=== PATIENT | female | born 1985 | race Caucasian/White ===

== ENCOUNTER 2020-11-11 19:14 | Inpatient (IN) | payer OTHER ==
[2020-11-11] VITALS (8 sets, daily range): BP systolic 144–189; BP diastolic 66–98
[~2020-11-11] VITALS: Ht 160 cm; Wt 78.5 kg
--- NOTE | 2020-11-11 19:38 | NUR ---
PT SIGNED OUT AMA FROM [facility] 11/03/20. IS DIABETIC BRITTLE, JUVENILE ONSET. END STAGE KIDNEY DISEASE, DIALYSIS 3 TIMES WEEKLY HAS HAD NO DIALYSIS. ON MEDICATIONS, INCLUDING INSULIN SINCE DISCHARGE ON 11/03. HAS EPILEPSY NO CODE STATUS PER [place]. PT IS NOT A [place] OF THE STATE, MAKES HER OWN DECISIONS
[2020-11-11 19:42] LABS: BE(vivo) -7.8 mmol/L (-2 to +3); HCO3 19.7 mmol/L (22.0-26.0); PCO2 48.2 mmHg (35.0-45.0); sO2 73.5 % (92.0-98.0)
[2020-11-11 19:43] LABS: PO2 45.9 mmHg (80.0-100.0); pH 7.229 (7.360-7.450)
[2020-11-11 19:47] LABS: BASOPHILS 0.6 % (0.0-2.0); EOSINOPHILS 0.4 % (0.0-3.0); HEMATOCRIT 34.7 % (37.0-47.0); HEMOGLOBIN 11.2 gm/dL (12.0-15.0); LYMPHOCYTES 9.9 % (24.0-44.0); MCH 31.3 pg (26.0-34.0); MCHC 32.3 g/dL (28.0-37.0); MCV 96.9 fL (80.0-100.0); MONOCYTES 4.8 % (1.0-8.0); PLATELET COUNT 183 thou/uL (150-400); POLYS 84.3 % (36.0-66.0); RBC 3.58 mil/uL (4.20-5.00); WBC 7.1 thou/uL (4.0-11.0)
[2020-11-11 20:00] LABS: ALBUMIN 3.5 g/dL (3.4-5.0); CALCIUM 8.4 mg/dL (8.5-10.1); CREATININE 11.8 mg/dL (0.6-1.0); MAGNESIUM 2.4 mg/dL (1.8-2.4); TOTAL BILIRUBIN 1.9 mg/dL (0.2-1.0); TOTAL PROTEIN 7.6 g/dL (6.4-8.2)
[2020-11-11] MEDS ORDERED: ASA81BEC PO ×2 (20:03)
[2020-11-11] MEDS ORDERED: CELEXA 20 MG TA20 MG PO (20:04)
[2020-11-11] MEDS ORDERED: SLOW FE142 MG PO (20:05)
[2020-11-11 20:06] LABS: POTASSIUM 6.4 mmol/L (3.5-5.1)
[2020-11-11] MEDS ORDERED: GABAPENTIN600 M1 PO (20:06)
[2020-11-11] MEDS ORDERED: LANTUS100 UNIT/M SUBQ (20:07)
[2020-11-11] MEDS ORDERED: LASIX 40 MG TAB40 MG PO (20:08)
[2020-11-11] MEDS ORDERED: NOVOLOG100 UNIT/1 SUBQ (20:09)
[2020-11-11] MEDS ORDERED: LOPRESSOR50 MG PO (20:09)
[2020-11-11] MEDS ORDERED: LEVOTHYROXINE25 MC1 PO (20:09)
[2020-11-11] MEDS ORDERED: PROCARDIA XL60 MG PO (20:10)
[2020-11-11] MEDS ORDERED: RENVELA800 MG PO (20:11)
[2020-11-11] MEDS ORDERED: ACETAMINOPHEN PO (20:12)
[2020-11-11 21:46] LABS: PCO2 34.5 mmHg (35.0-45.0); PO2 106.9 mmHg (80.0-100.0); pH 7.335 (7.360-7.450); sO2 97.6 % (92.0-98.0)
--- NOTE | 2020-11-11 22:35 | NUR ---
INFORMATION SENT FROM AL SENT TO ICU
[2020-11-11 22:47] LABS: CALCIUM 8.2 mg/dL (8.5-10.1); CREATININE 11.6 mg/dL (0.6-1.0); POTASSIUM 5.6 mmol/L (3.5-5.1)
[2020-11-12] VITALS (52 sets, daily range): BP systolic 134–198; BP diastolic 61–105
--- NOTE | 2020-11-12 01:06 | NUR ---
2229 PT ARRIVED FROM ER VIA CART. PT IS INTUBATED AND SEDATED WITH PROPOFOL GTT. PT IS MOVED FROM CART TO ICU BED AND ASSESSED PER ICU PROTOCOL. PT IS MOVING ALL EXTREMITIES AND RESTRAINED TO PREVENT SELF EXTUBATION. DR. RANDALL CALLED FOR NEPHROLOGY CONSULT AND ORDERED EMERGENT DIALYSIS. DR. LOMBARDI CALLED FOR PULMONOLOGY CONSULT, VENT SETTINGS AND ABGS WERE REPORTED, NO NEW ORDERS RECEIVED. SCRAPE GATHERER KENISHA AT BEDSIDE. EX /DPOA ([place]) CALLED AND GIVEN AN UPDATE ON PTS CONDITION WELL PTS SECUIRTY CODE AND UNIT PHONE NUMBER. CODE STATUS WAS ALSO CLARIFIED BY DPOA AND HE STATES SHE IS A FULL CODE. 9 DIALYSIS NURSE IS AT BEDSIDE AND STARTING HEMODIALYSIS.
[2020-11-12 04:51] LABS: HEMATOCRIT 26.7 % (37.0-47.0); HEMOGLOBIN 9.4 gm/dL (12.0-15.0); MCH 32.2 pg (26.0-34.0); MCHC 35.1 g/dL (28.0-37.0); RBC 2.91 mil/uL (4.20-5.00); RDW 15.6 % (10.5-14.5); WBC 6.6 thou/uL (4.0-11.0)
[2020-11-12 04:52] LABS: MCV 91.7 fL (80.0-100.0)
[2020-11-12 05:06] LABS: CALCIUM 8.8 mg/dL (8.5-10.1)
[2020-11-12 05:08] LABS: CREATININE 5.9 mg/dL (0.6-1.0); POTASSIUM 3.3 mmol/L (3.5-5.1)
[2020-11-12 05:14] LABS: BE(vivo) 3.7 mmol/L (-2 to +3); HCO3 26.2 mmol/L (22.0-26.0); PCO2 32.2 mmHg (35.0-45.0); PO2 66.5 mmHg (80.0-100.0); pH 7.528 (7.360-7.450); sO2 95.2 % (92.0-98.0)
[2020-11-12 12:51] LABS: HCO3 21.6 mmol/L (22.0-26.0); PO2 129.6 mmHg (80.0-100.0); pH 7.434 (7.360-7.450); sO2 98.7 % (92.0-98.0)
--- NOTE | 2020-11-12 13:42 | NUR ---
ASSUMED CARE OF PATIENT AT 0600- PATIENT WAS SEDATED AND RESTING COMFORTABLY. AT 1210 SHE WAS OFF HER SEDATION AND AND WAS PLACED ON CPAP TRIAL. SHE PASSED AND DR LOMBARDI GAVE THE ORDER TO PULL THE TUBE. AT 1300 THE PATIENT WAS EXTUBATED TO 2LNC NO STRIDOR NOTED.
--- NOTE | 2020-11-12 17:26 | NUR ---
ASSUMED CARE AT 1200. PATIENT PROGRESSING TOWARDS THE PLAN OF CARE EVIDENCED BY NO FURTHER NEED FOR INTUBATION. PATIENT ASLEEP MOST OF THE TIME FOLLOWING EXTUBATION.
[2020-11-13] VITALS (36 sets, daily range): BP systolic 96–153; BP diastolic 40–78
[2020-11-13 02:05] LABS: GLYCOHEMOGLOBIN (HGB A1C) 11.1 % (4.8-5.6)
[2020-11-13 03:50] LABS: ALBUMIN 2.7 g/dL (3.4-5.0); CALCIUM 8.3 mg/dL (8.5-10.1); PHOSPHORUS 5.6 mg/dL (2.6-4.7)
[2020-11-13 03:52] LABS: CREATININE 7.8 mg/dL (0.6-1.0); POTASSIUM 4.4 mmol/L (3.5-5.1)
--- NOTE | 2020-11-13 07:12 | EKG ---
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
[2020-11-13 09:17] LABS: ABSOLUTE NEUTROPHILS 7.8 thou/uL (1.4-8.2); BASOPHILS 0.4 % (0.0-2.0); EOSINOPHILS 0.4 % (0.0-3.0); HEMATOCRIT 29.4 % (37.0-47.0); HEMOGLOBIN 9.6 gm/dL (12.0-15.0); LYMPHOCYTES 8.4 % (24.0-44.0); MCH 31.3 pg (26.0-34.0); MCHC 32.5 g/dL (28.0-37.0); MCV 96.4 fL (80.0-100.0); MONOCYTES 6.6 % (1.0-8.0); PLATELET COUNT 160 thou/uL (150-400); POLYS 84.2 % (36.0-66.0); RBC 3.05 mil/uL (4.20-5.00); RDW 16.8 % (10.5-14.5); WBC 9.3 thou/uL (4.0-11.0)
--- NOTE | 2020-11-13 11:36 | NUR ---
Chart review. discussed during am rounds and los. Cm visited with her at bedside after her dialysis tx was complete. Intro to cm, dcp, rehab and hh. She reported that she recently moved here from [place], [place]. She lives with her children and ex-. independent when feeling ok. No dme. Takes bus to dialysis M-- at 8a with ashlynlorenzo, unable to remember which location, its close to home though per nilesh. Noted she is on oxygen, no home o2 in the past. Been to rehab after knee, in [facility]. Had [facility] in past when she lives in [place], [place]. Agreeable to any hh if needed for dc needs. discussed jorge at home. Will cont following as needed for dc needs.
[2020-11-13 17:06] LABS: HEP B SURFACE Ab(ANTI-HBS Reactive (()); HEPATITIS B SURFACE AG Negative (Negative)
[2020-11-14 00:05] VITALS: BP 135/80
--- NOTE | 2020-11-14 00:20 | NUR ---
Transfered from ICU per wheelchair. Hypoglycemic treated with glucose tabs, patient is asymptomatic now. Blood sugar recheck 67-treated with more glucose tabs.
[2020-11-14 05:34] VITALS: BP 142/84
--- NOTE | 2020-11-14 06:22 | NUR ---
Patient making progress towards outcome goals. Vital signs stable. Hypogycemia resolved. Gait steady, up adlib in room without difficulty.
[2020-11-14 07:35] VITALS: BP 125/68
--- NOTE | 2020-11-14 09:35 | NUR ---
ORDERS RECEIVED FOR EVAL AND TREAT. Pt IS UP AD BRANDY IN ROOM AND O.T. DISCHARGED HER BECAUSE SHE WAS AT INDEPENDENT BASELINE. SPOKE WITH Pt WHO STATES SHE IS GETTING UP WITHOUT DIFFICULTY AND IS HOPING TO DISCHARGE HOME TODAY. Pt DECLINING FORMAL P.T. EVAL BUT SOUNDS LIKE SHE IS SAFE FOR HOME
--- NOTE | 2020-11-14 12:45 | HC ---
[facility] [place] [address] CONSULTATION Name: KASIE JOHNSTON Room #: 363-P ADM IN M.R.#: [id number] Admission: 11/11/20 Attend Phys: Maxim Zimmerman Discharge: Date of : 85 Report #: [id number] THIS REPORT FOR: cc: FAM - Family physician unknown FAM - Family physician unknown Ke Tobias MD ~ DOC #: [id number] Ke Tobias MD DATE OF SERVICE: 11/12/2020 HISTORY OF PRESENT ILLNESS: This is a 35-year-old female patient who was evaluated by me for seizure. The patient is unable to provide any history because she is intubated. Her ex- is here and he provided some history. I do not have medical records from [place] in this patient. Apparently, this patient had a seizure in February and she had a life-threatening event that time. She may have had a stroke also sometime in December. In February, the life-threatening event was cardiac arrest according to the . The patient was not able to take care of herself, went to the skilled nursing, but then signed out against medical advice. She went back to live with her ex-, but has not had any dialysis or any medication for 1 week. REVIEW OF SYSTEMS: Positive for prior seizure as well as a prior stroke. I am not sure about the history of stroke because that is somewhat questionable, but he said she did have some paralysis, but he did not know what side. The patient was on Keppra for seizure, but it is not certain what dose she was on. She has not taken Keppra at least from the last few days, but she was given a dose of Keppra in emergency room last night. She is diabetic. She becomes hypoglycemic, then she becomes hyperglycemic. She has a history of hypertension, hypothyroidism, end-stage renal disease. He did not know the cause of the renal failure. I do not have any record from [place]. She also has a history of depression, iron deficiency anemia, hypertension. That was a relevant 14-point review of system. PAST MEDICAL HISTORY: Positive for abdominal surgery and epilepsy. FAMILY HISTORY: Negative for congenital epilepsy. SOCIAL HISTORY: She does not smoke or drink any alcohol. PHYSICAL EXAMINATION: GENERAL: The patient's examination is limited. She is alert. She can follow simple commands. I cannot tell about the visual field because one of the notes that she is blind. She does have looks like she can move all 4 extremities. Sensation appeared to be present. There is no meningeal sign. I cannot look at the patient's fundus or do the cerebellar sign in this patient because of the [facility] [place] [address] [place] [address] CONSULTATION Name: KASIE JOHNSTON Room #: 363-P ADM IN M.R.#: [id number] Admission: 11/11/20 Attend Phys: Maxim Zimmerman Discharge: Date of : 85 Report #: [id number] condition. She is intubated. VITAL SIGNS: Her blood pressure is 147/72, respirations 16, pulse is 77. She does not have any edema, cyanosis or jaundice. HEENT: I think her vision and hearing looks adequate. Her hemoglobin is 9.4, her potassium was 6.4, but now it is 3.3, her creatinine is 5.9, magnesium is 1.9. IMPRESSION AND PLAN: Breakthrough seizure because of noncompliance in a patient who has a history of seizure. I do not know what the cause of the seizure was at that time or whether it was even determine. Presently, I will get an EEG done and put her back on Keppra since the dose is not known. I will put her on 500 mg b.i.d. of Keppra for the time being, then I think we may have to put her back on the renal schedule. I discussed all of it with the in detail and he understands and he wants to follow this plan. Thank you very much for this referral. Ke Tobias MD PK/NAHOMY <ELECTRONICALLY SIGNED> By: Ke Tobias MD 11/14/20 1245 1109 09 Ke Tobias MD /nt
--- NOTE | 2020-11-14 12:46 | EEG ---
[facility] [place] [address] ELECTROENCEPHALOGRAM Name: KASIE JOHNSTON Room #: 363-P ADM IN M.R.#: [id number] Admission: 11/11/20 Attend Phys: Maxim Tyson Discharge: Date of : 85 Report #: [id number] THIS REPORT FOR: //name// DOC #: [id number] Ke Tobias MD DATE OF SERVICE: 11/11/2020 This patient is being evaluated for altered mental status. EEG was done by placing the electrodes by standard 10-20 system of electrode placement. Both referential and sequential montages were used for recording. Background activity is disorganized and poorly formed. It would appear it is about 7 Hz and 30 microvolt. The patient went to sleep and this even slower at that time. Photic stimulation is unremarkable. No active epileptiform activity was noticed during this record. IMPRESSION: This patient's EEG demonstrate significant slowing on both sides. That is a nonspecific abnormality which can occur with encephalopathy, effect of psychotropic medication, dementia, etc. Clinical correlation is recommended. Ke Tobias MD PK/GRISEL <ELECTRONICALLY SIGNED> By: Ke Tobias MD 11/14/20 1246 1655 1807 Ke Tobias MD /nt
--- NOTE | 2020-11-14 13:24 | NUR ---
DISCHARGE NOTE: FUNMI reviewed chart and spoke with nursing and attending physician. Pt was transferred to 3 from ICU and is medically stable for discharge home today. Physical therapy evaluated pt and cleared pt for discharge. FUNMI met with pt at bedside to discuss discharge plan. Pt declines needing HH services. Pt goes to the [facility] . Pt states she has transportation home this afternoon. Awaiting final discharge orders at this time to send to pt's dialysis clinic. FUNMI is following to finalize discharge.
[2020-11-14 14:25] VITALS: BP 125/68
[2020-11-14] MEDS ORDERED: ACETAMINOPHEN325 M1 PO (14:45)
[2020-11-14] MEDS ORDERED: KEPPRA 500 MG500 MG PO (14:45)
[2020-11-14 15:35] VITALS: BP 143/78
--- NOTE | 2020-11-14 16:12 | NUR ---
ASSUMED PATIENT CARE AT 0700. A/O X4. NO DISTRESS NOTED. RIGHT IJ DC'D. DC TO HOME NOW.
--- NOTE | 2020-11-16 08:55 | NUR ---
Late Entry: SW received call on 11/15 from Ca with [facility]. ( ). Ca requested additional info regarding hotline call placed on 11/14. Info provided. Per further chart review, pt left AMA from [facility] in [place], [place]. Contact info for pt's ex- provided. Local home address and dialysis clinic info also provided. No additional SW needs identified at this time, but is available to assist should needs arise.
== END 2020-11-14 16:22 | disposition home or self-care (01) | DRG 208 ==
LOC: ER 19:14 → ICU 22:14 → EROBS 22:14 → ICU 22:30 → 3W 11-14 00:25
PROVIDERS: Emergency Medicine; Hospitalist; Nurse Practitioner Family; Pediatrics; ADMIT Hospitalist; ATTEND Hospitalist
DX: J96.01 Acute respiratory failure with hypoxia (principal); E11.10 Type 2 diabetes mellitus with ketoacidosis without coma; N18.6 End stage renal disease; E11.01 Type 2 diabetes mellitus with hyperosmolarity with coma; G92 Toxic encephalopathy; I16.1 Hypertensive emergency; I12.0 Hypertensive chronic kidney disease with stage 5 chronic kidney disease or end stage renal disease; E87.2 Acidosis; G40.909 Epilepsy, unspecified, not intractable, without status epilepticus; E03.9 Hypothyroidism, unspecified; E11.40 Type 2 diabetes mellitus with diabetic neuropathy, unspecified; F32.9 Major depressive disorder, single episode, unspecified; E87.5 Hyperkalemia; E11.22 Type 2 diabetes mellitus with diabetic chronic kidney disease; Z79.4 Long term (current) use of insulin; Z79.82 Long term (current) use of aspirin; Z79.899 Other long term (current) drug therapy; Z91.15 Patient's noncompliance with renal dialysis
CPT/HCPCS: 10078; 32100

== ENCOUNTER 2020-11-26 11:03 | Inpatient (IN) | payer OTHER ==
[~2020-11-26] VITALS: Ht 167.6 cm; Wt 77.9 kg
[2020-11-26] VITALS (28 sets, daily range): BP systolic 123–224; BP diastolic 64–111
--- NOTE | ~2020-11-26 | EMS ---
[address] [address] EMS Patient Care Report Name: KASIE JOHNSTON Room #: 455-P ADM IN M.R.#: [id number] Admission: 11/26/20 Attend Phys: Lemuel Darling MD Discharge: Date of : 85 Report #: [id number] THIS REPORT FOR: //name// Report Transmitted: 11/28/2020 14:44 EMS Care Summary [place], [place]/[facility] Incident [id number] @ 11/26/2020 10:28 Incident Location [facility] [place] [address] Patient KASIE JOHNSTON Female, 35 Years 1985 Patient Address [address] [place] [address] Patient History Cardiac Arrest,Epilepsy,Diabetes,Stroke/CVA,End Stage Renal Disease (ESRD),Dialysis, Patient Allergies No known allergies, Patient Medications Insulin, Chief Complaint AMS Disposition Transported No Lights/[place] Dispatch Reason Diabetic Problem Transported To [facility] Narrative ARRIVED TO FIND PT SITTING ON A STAIRCASE. PT FAMILY ON SCENE STATES THAT HE GOT A CALL FROM HIS CHILD THAT PT WAS NOT ACTING RIGHT. FAMIILY FOUND PT TO BE HYPERGLYCEMIC. ALS ASSESSMENT VITALS OBTAINED. PT MOVED TO [facility], SECURED WITH [address] [address] EMS Patient Care Report Name: KASIE JOHNSTON Room #: 455-P ADM IN M.Ami.#: [id number] Admission: 11/26/20 Attend Phys: Lemuel Darling MD Discharge: Date of : 85 Report #: [id number] STRAPS X2, LOADED WITHOUT INCIDENT. PT UNABLE TO COMMUNICATE WITH EMS AT THIS TIME, CAN FOLLOW SOME SIMPLE COMMANDS, BUT NOT ALL. ENROUTE, PT CONDITION UNCHANGED. ARRIVED. PT TAKEN INSIDE ON COT TO ER 6. PT MOVED TO BED WITH ASSISTANCE. REPORT GIVEN TO NURSE, PT CARE TRANSFERRED. Initial Vitals @10:51P: 90,R: 33,CO: 1,SpO2: 90, @10:48P: 91,R: 13,BP: 225/111,Pain: 0/10,GCS: 10,CO: 2,SpO2: 93,Revised Trauma: 11, @10:35P: 93,R: 16,BP: 241/130,Pain: 0/10,GCS: 10,Glucose: -2,CO: 1,SpO2: 92,Revised Trauma: 11, @10:58P: 90,R: 24,BP: 241/117,Pain: 0/10,GCS: 10,SpO2: 94,Revised Trauma: 11, Assessments @10:34MENTAL:Confused,SKIN:Hot,HEENT:Head/Face: No Abnormalities,Neck/Airway: No Abnormalities,LUNG SOUNDS:General: No Abnormalities,Left Upper: No Abnormalities,Right Upper: No Abnormalities,Left Lower: No Abnormalities,Right Lower: No Abnormalities,ABDOMEN:General: No Abnormalities,Left Upper: No Abnormalities,Right Upper: No Abnormalities,Left Lower: No Abnormalities,Right Lower: No Abnormalities,PELVIS//GI:No Abnormalities,EXTREMITIES:Left Arm: No Abnormalities,Right Arm: No Abnormalities,Left Leg: No Abnormalities,Right Leg: No Abnormalities,PULSE:Radial: 2+ Normal,NEURO:No Abnormalities, Impression Diabetic Hyperglycemia Procedures @10:34ALS AssessmentResponse: UnchangedSucceeded@10:50Saline Lock 0cc (20 ga) Site: Antecubital-RightResponse: UnchangedFailed@10:51Oxygen FlowRate: 3 Device: Nasal Cannula (NC) Response: UnchangedFailed Timeline 10:26,Call Received 10:26,Dispatch Notified 10:28,Dispatched 10:28,En Route 10:33,On Scene 10:34,At Patient 10:34,ALS Assessment,Response: UnchangedSucceeded, 10:35,BP: 241/130 M,PULSE: 93,RR: 16 R,SPO2: 92 Ox,ETCO2: ,BG: -2,PAIN: 0,GCS: 10, 10:47,Depart Scene 10:48,BP: 225/111 M,PULSE: 91,RR: 13 R,SPO2: 93 Ox,ETCO2: ,BG: ,PAIN: 0,GCS: [facility] [address] [place] [address] EMS Patient Care Report Name: KASIE JOHNSTON Room #: 455-P ADM IN M.R.#: [id number] Admission: 11/26/20 Attend Phys: Lemuel Darling MD Discharge: Date of : 85 Report #: [id number] 10, 10:50,Saline Lock 0cc 20 ga Site: Antecubital-Right,Response: UnchangedFailed, 10:51,Oxygen FlowRate: 3 Device: Nasal Cannula (NC) Response: UnchangedFailed, 10:51,BP: / M,PULSE: 90,RR: 33 R,SPO2: 90 Ox,ETCO2: ,BG: ,PAIN: ,GCS: , 10:58,BP: 241/117 M,PULSE: 90,RR: 24 R,SPO2: 94 Ox,ETCO2: ,BG: ,PAIN: 0,GCS: 10, 11:01,At Destination 11:10,Call Closed Disclaimer v1.1 Copyright 2020 [employer] This EMS Care Summary contains data elements from the applicable legal record (which may be displayed differently). It is designed to provide pertinent information for the following purposes: continuity of care, clinical quality, and state data reporting. The complete legal record is available to ED staff and administrators of the receiving hospital in [employer] Patient Tracker. All data is provided "as is."
[~2020-11-26 11:03] MED LIST: ACETAMINOPHEN PO; ACETAMINOPHEN325 M1 PO; ASA81BEC PO; CELEXA 20 MG TA20 MG PO; GABAPENTIN600 M1 PO; KEPPRA 500 MG500 MG PO; LANTUS100 UNIT/M SUBQ; LASIX 40 MG TAB40 MG PO; LEVOTHYROXINE25 MC1 PO; LOPRESSOR50 MG PO; NOVOLOG100 UNIT/1 SUBQ; PROCARDIA XL60 MG PO; RENVELA800 MG PO; SLOW FE142 MG PO
[2020-11-26 11:20] LABS: ABSOLUTE NEUTROPHILS 7.9 thou/uL (1.4-8.2); BASOPHILS 0.3 % (0.0-2.0); EOSINOPHILS 0.5 % (0.0-3.0); HEMATOCRIT 34.8 % (37.0-47.0); HEMOGLOBIN 11.4 gm/dL (12.0-15.0); LYMPHOCYTES 6.3 % (24.0-44.0); MCHC 32.7 g/dL (28.0-37.0); MCV 97.8 fL (80.0-100.0); MONOCYTES 3.1 % (1.0-8.0); PLATELET COUNT 262 thou/uL (150-400); POLYS 89.8 % (36.0-66.0); RBC 3.56 mil/uL (4.20-5.00); RDW 15.3 % (10.5-14.5); WBC 8.8 thou/uL (4.0-11.0)
[2020-11-26 11:43] LABS: ALBUMIN 3.4 g/dL (3.4-5.0); CALCIUM 9.3 mg/dL (8.5-10.1); POTASSIUM 5.3 mmol/L (3.5-5.1); TOTAL BILIRUBIN 1.5 mg/dL (0.2-1.0); TOTAL PROTEIN 7.8 g/dL (6.4-8.2)
[2020-11-26 12:03] LABS: BE(vivo) -3.6 mmol/L (-2 to +3); HCO3 20.6 mmol/L (22.0-26.0); PCO2 34.4 mmHg (35.0-45.0); PO2 71.2 mmHg (80.0-100.0); pH 7.396 (7.360-7.450); sO2 94.4 % (92.0-98.0)
[2020-11-26 12:15] LABS: URINE BILIRUBIN NEGATIVE (Negative); URINE BLOOD 3+ (Negative); URINE CLARITY CLOUDY; URINE COLOR YELLOW; URINE GLUCOSE-RANDOM* 3+ (Negative); URINE KETONES 1+ (Negative); URINE LEUKOCYTES-REFLEX 1+ (Negative); URINE NITRITE-REFLEX POSITIVE (Negative); URINE PROTEIN (DIPSTICK) 3+ (Negative); URINE SPECIFIC GRAVITY 1.015 (1.005-1.035); URINE UROBILINOGEN 0.2 E.U./dl (0.2-1.0)
[2020-11-26 12:42] LABS: CASTS None Seen /LPF (None Seen); SQUAMOUS None Seen /LPF (0-3); URINE RBC 3-10 Few /HPF (NONE SEEN)
[2020-11-26 12:43] LABS: BACTERIA-REFLEX 1-9 Few /HPF (None Seen); CRYSTALS None Seen /LPF (None Seen); WBC CLUMPS Few (None Seen)
--- NOTE | 2020-11-26 13:44 | NUR ---
VAT CALLED TO ED, PT COMBATIVE, AGGITATED. TIMEOUT WITH DEBBIE NUNN. RIJ WAS WIDELY PATENT WITH USG. 6FR TL POWER JACC 25CM INSERTED TO 8CM EXTERNAL X1 STICK. ASSISTED BY 2 ER STAFF HOLDING PT DOWN FOR INSERTION. BLEEDING AT SITE GAUZE APPLIED. STAT CXR ORDERED. WRIST RESTRAINTS ON
--- NOTE | 2020-11-26 14:23 | NUR ---
CXR TOO DEEP WITHDREW LINE FEW CM'S RELEASED FOR IMMEDIATE USE PER PROTOCOL TO DEBBIE NUNN
--- NOTE | 2020-11-26 17:08 | NUR ---
PAGED DR. MENA REGARDING PATIENT BEING IN ICU AND TO CLARIFY DKA ORDERS. DR. MENA CALLED BACK AND STATED NOT TO FOLLOW DKA PROTOCOL DUE TO PATIENT BEING HEMODIALYSIS PATIENT, HE STATED TO KEEP ON INSULIN GTT TO BRING DOWN BLOOD GLUCOSE TO ACCEPTABLE NORMAL RANGE AND THAT DIALYSIS WILL CORRECT THE REST OF THE LABS. NO NEPHROLOGY CONSULT AT THIS TIME AND DR. MENA NOTIFIED OF THIS.
[2020-11-27] VITALS (30 sets, daily range): BP systolic 121–197; BP diastolic 57–97
[2020-11-27 04:14] LABS: CALCIUM 9.1 mg/dL (8.5-10.1); CREATININE 8.9 mg/dL (0.6-1.0)
--- NOTE | 2020-11-27 07:50 | EKG ---
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: mary : 1985 Requested By: Jerman Tavarez Order Number: [id number] MD: Richie Taylor Measurements Intervals [place] Rate: 91 P: 18 OR: 169 QRS: -53 QRSD: 111 T: 57 QT: 406 QTc: 500 Interpretive Statements Sinus rhythm LAD, consider left anterior fascicular block Low voltage, extremity leads Borderline ST depression, lateral leads Prolonged QT interval Baseline wander in lead(s) I,V1,V6 Compared to ECG 11/11/2020 19:42:00 Low QRS voltage now present ST (T wave) deviation now present Prolonged QT interval now present Sinus tachycardia no longer present Electronically Signed On 11-27-2020 7:49:50 CDT by Richie Taylor [email or web address] <ELECTRONICALLY SIGNED> By: Richie Taylor MD, [facility] 11/27/20 0749 1109 1109 Richie Taylor MD, [facility] /EPI
--- NOTE | 2020-11-27 16:01 | NUR ---
35 year old female presenting to the ED via EMS for AMS. PMHx includes cardiac arrest, DM with dialysis, renal failure, and HTN. As of today the patient remains obtunded. The patient per record has a history of non-compliance and current record shows admitting BG of 881. Per the previous admission CM notes that patient lives with her children and ex-. Has used [facility] in the past when she was living in [place], [place]. SW also noted on 11-14-20 that patient was to be at [facility] in [place]. Also noted that patient at this time resided at [address] [place] [address]. [phone]. Dayne Gomez ex- listed as next of kin as contact with phone number [phone]. Called and left to return call. Dayne called back and said the patient recently discharged the week prior to her first hospitalization at [facility] () from [facility] [phone]. Dayne would like the patient to discharge back to this facility. Called [phone] and was directed to the traffic and transport planner and left a to return a call at [phone]. PT orders placed and will await evaluation for discharge planning needs. CM will continue to follow for Discharge needs.
--- NOTE | 2020-11-27 18:35 | NUR ---
0736 HRS - LAB, + BLOOD CULTURE FROM 11/26. GRAM POST COCCI CONSISTENT W/ STAPH 1300 HRS - MANAGER SCIENTIFIC @ BEDSIDE 1447 HRS - LAB, STAPH AUREUS. DR MENA NOTIFIED TO CONSULT INFECTIOUS DZ 1600 HRS - MANAGER SCIENTIFIC, REPORT TAKING OFF 3L.
[2020-11-28] VITALS (8 sets, daily range): BP systolic 108–178; BP diastolic 60–89
--- NOTE | 2020-11-28 07:38 | NUR ---
Assumed pt care at 0400,transfer from ICU. A/O X2-3,able to make needs known. VSS.Incontinent of BM frequently,red on her buttocks. NSR on telemetry. On isolation for CDIFF,started on PO Vanco this morning. Resting quietly w/o distress,will continue to monitor pt.
--- NOTE | 2020-11-28 11:41 | NUR ---
PATIENT ALERT/ORIENTED X3. SLOW TO RESPOND AT TIMES BUT HAVE BECOME LESS DROWSY THROUGH OUT THE DAY. HAVING FREQUENT BOWEL MOVEMENTS. INCONTINENT AT TIMES. REMAINS ON ISOLATION FOR C-DIFF. SEIZURE PRECAUTIONS IN PLACE. PATIENT VOICES NO NEEDS OR CONCERNS AT THIS TIME.
--- NOTE | 2020-11-28 16:53 | NUR ---
35 year old female presenting to the ED via EMS for AMS. PMHx includes cardiac arrest, DM with dialysis, renal failure, and HTN. As of today the patient remains obtunded. The patient per record has a history of non-compliance and current record shows admitting BG of 881. Per the previous admission CM notes that patient lives with her children and ex-. Has used [facility] in the past when she was living in [place], [place]. SW also noted on 11-14-20 that patient was to be at [facility] in [place]. Also noted that patient at this time resided at [address] [place] [address]. [phone]. Dayne Gomez ex- listed as next of kin as contact with phone number [phone]. Called and left to return call. Dayne called back and said the patient recently discharged the week prior to her first hospitalization at [facility] () from [facility] in [facility] [phone]. Dayne would like the patient to discharge back to this facility. Called [phone] and was directed to the footwear sales representative and left a VM to return a call at [phone]. PT orders placed and will await evals. cm attempted pc to don at [facility] this day with no response. cm following regarding possible placement.
--- NOTE | 2020-11-29 02:09 | NUR ---
PT CARE ASSUMED AT 1900 WITH DAUGHTER AT BEDSIDE .PT IS A/O X3.PT IS UP TO BSC WITH STANDBY ASSIST.PT C/O HEADACHE WITH RELIEF FROM TYLENOL.PT IS ACCUCHECK ACHS WITH SSI.PT ON ISOLATION PRECAUTION FOR C DIFF.IV ACCESS RT IJ CENTRAL LINE TRIPPLE LUMEN.AV FISTULA FOR DIALYSIS ON LFA.WILL CONTINUE TO MONITOR POC
--- NOTE | 2020-11-29 08:08 | 2DMMODE ---
[facility] [place] [address] 2 D/M-MODE ECHOCARDIOGRAM Name: KASIE JOHNSTON Room #: 455-P ADM IN M.R.#: [id number] Admission: 11/26/20 Attend Phys: Lemuel Darling MD Discharge: Date of : 85 Report #: [id number] THIS REPORT FOR: cc: FAM - Family physician unknown FAM - Family physician unknown Richie Taylor MD [facility] ~ APPROVED REPORT Study performed: 11/28/2020 14:48:06 EXAM: Comprehensive 2D, Doppler, and color-flow Echocardiogram Patient Location: Bedside Room #: [facility] Status: routine BSA: 1.85 HR: 87 bpm BP: 136/65 mmHg Rhythm: NSR Other Information Study Quality: Good Indications Diabetes Hypertension/HDD Staph aureus 2D Dimensions RVDd: 41.16 mm IVSd: 8.42 (7-11mm) LVOT Diam: 18.06 (18-24mm) LVDd: 47.58 mm PWd: 9.44 (7-11mm) Ascending Ao: 28.47 (22-36mm) LVDs: 32.47 (25-40mm) Left Atrium: 45.49 (27-40mm) Aortic Root: 29.05 mm IVC: 21.00 mm Volumes Left Atrial Volume (Systole) Single Plane 4CH: 52.97 mL Single Plane 2CH: 44.40 mL LA ESV Index: 29.00 mL/m2 Aortic Valve AoV Peak Abhay.: 1.61 m/s AO Peak Gr.: 10.34 mmHg LVOT Max P.70 mmHg [facility] [address] [place] [address] 2 D/M-MODE ECHOCARDIOGRAM Name: VICKIEKASIE Room #: 455-P [facility] IN ..#: [id number] Admission: 11/26/20 Attend Phys: Lemuel Darling MD Discharge: Date of : 85 Report #: [id number] LVOT Max V: 1.39 m/s EVANGELIST Vmax: 2.21 cm2 Mitral Valve E/A Ratio: 1.1 MV Decel. Time: 179.21 ms MV E Max Abhay.: 1.07 m/s MV A Abhay.: 0.95 m/s MV PHT: 51.97 ms IVRT: 55.36 ms Pulmonary Valve PV Peak Abhay.: 1.20 m/s PV Peak Gr.: 5.72 mmHg Pulmonary Vein P Vein S: 0.31 m/s P Vein A: 0.19 m/s P Vein D: 0.20 m/s P Vein A Dur.: 101.5 msec P Vein S/D Ratio: 1.55 Tricuspid Valve TR Peak Abhay.: 3.44 m/s TR Peak Gr.: 47.41 mmHg PA Pressure: 57.00 mmHg Left Ventricle The left ventricle is normal size. There is normal LV segmental wall motion. Normal wall thickness The left ventricular systolic function is normal. The left ventricular ejection fraction is within the normal range. LVEF is 55-60%. The left ventricular diastolic function is normal. Right Ventricle The right ventricle is normal size. The right ventricular systolic function is normal. Atria The left atrium size is normal. Right atrium is dilated. Aortic Valve The aortic valve is normal in structure. The Aortic valve is sclerotic. Trace aortic regurgitation. There is no aortic valvular stenosis. Mitral Valve The mitral valve is normal in structure. There is no mitral valve regurgitation noted. No evidence of mitral valve stenosis. [facility] [address] [place] [address] 2 D/M-MODE ECHOCARDIOGRAM Name: KASIE JOHNSTON Room #: 455-P ADM IN M.R.#: [id number] Admission: 11/26/20 Attend Phys: Lemuel Darlnig MD Discharge: Date of : 85 Report #: [id number] Tricuspid Valve The tricuspid valve is normal in structure. There is mild to moderate tricuspid regurgitation. Estimated PAP 57 mmHg. There is moderate pulmonary hypertension. Pulmonic Valve The pulmonary valve is normal in structure. There is no pulmonic valvular regurgitation. Great Vessels The aortic root is normal in size. IVC is dilated and collapses >50% with inspiration. Pericardium There is no pericardial effusion. <Conclusion> Normal left ventricular size/wall thickness Ejection fraction 60% Normal right ventricular size/function Normal atrial size Color-flow upper study was performed of the aortic/mitral/tricuspid/pulmonary valve Normal aortic/mitral valve structure and function Mild tricuspid valve insufficiency Pulmonary systolic pressure estimated 57 mmHg Normal aortic root size No pericardial effusion <ELECTRONICALLY SIGNED> By: Richie Taylor MD, FACC 11/29/20807 7 7 Richie Taylor MD, FACC /INF
[2020-11-29 08:24] VITALS: BP 150/96
--- NOTE | 2020-11-29 13:44 | NUR ---
PT RESTING COMFORTABLY IN BED. HD TODAY 3L OFF PER PRODUCTION TECH. PT TOLERATED WELL. C-DIFF PRECAUTIONS, SEIZURE PRECAUTIONS. PT'S A/V GRAFT APPEARS TO BE CELLULITIC. RENAL IS TO SPEAK WITH HOSPITALIST ABOUT POSSIBLE TRANSFER FOR VASCUAL SURGERY CONSULT. PT AFEBRILE, OLIGURIC, NO BM, APPROPRIATE APPETITE. PT SLOWLY PROGRESSING TOWARDS POC. PT HAS BEEN THOUROUGHLY UPDATED AND EDUCATED ON CONDITION AND POC.
--- NOTE | 2020-11-29 15:15 | NUR ---
CARE TEAM INDICATED PT NEEDED TRANSFER TO ANOTHER FACILITY FOR VASCULAR SURGERY EVAL AND TREATMENT WITH TWW AND FULL WORK UP FOR POSSIBLE ENDOCARDITIS. CM MET WITH PT AT BEDSIDE THIS DAY AND SHE IS AGREEABLE. TRNASFER FORM SIGNED. CM CALLED [facility] FOR POSSIBLE TRANSFER TO [facility] AND THEY INDICATED THAT ALL FACILITIES ARE CLOSED TO TRANSFERS AT ALL LEVELS OF CARE. CM NOTIFIED PHYSICIANS. CM AWAITING DIRECTIONS. CM TO TRY [facility] NEXT.
[2020-11-29 16:09] VITALS: BP 168/92
[2020-11-29 20:07] VITALS: BP 119/55
[2020-11-29 22:42] VITALS: BP 127/69
[2020-11-30 05:35] VITALS: BP 134/78
--- NOTE | 2020-11-30 06:17 | NUR ---
PATIENT C/O ITCHING CLOTH HAND CALLED NEW ORDER OF [facility]. PATIENT AMBULATES IN THE ROOM WITH STEADY GAITS. PATIENT IS CALM AND COOPERATIVE WITH CARE AND MEDS. PATIENT IN BED ASLEEP AT THIS TIME BREATHING REGULAR AND UNLABOURED.
[2020-11-30 07:41] VITALS: BP 117/72
--- NOTE | 2020-11-30 11:22 | NUR ---
ASSUMED PT CARE THIS AM. PT A&OX3, ABLE TO MAKE NEEDS KNOWN. PATIENT HAS A DILAYSIS ACCESS PORT ON LEFT FOREARM. PATIENT REMAINS CONTINENT, AMBULATORY TO THE BATHROOM. PATIENT TAKING MEDIACTIONS WITHOUT ISSUE. MEDICATIONS INFUSING THROUGH IV WITHOUT ISSUE. CALL LIGHT WITHIN REACH.
--- NOTE | 2020-11-30 14:23 | NUR ---
CARE TEAM STILL INDICATING THAT PT REQUIRES TRANSFER FOR VASCULAR SURGERY EVAL AND TREAT. CM CALLED [facility] WHERE PT HAD FISTUAL PLACED. ALL WERE FULL AND CLOSED TO TRANSFERS AT TIME OF CONTACT. [facility] STATED THAT THEY WOULD REACH OUT TO DR. MENA. CM MET WIHT PT AND UPDATED HER. PT WAS FRUSTRATED AND WAS THREATENING TO DC AMA. GROUP MANAGER VISITED WITH PT AND SHE WAS RECEPTIVE TO STAY. CM TO FOLLOW TO ATTEMPT TRANSFER.
[2020-11-30 16:45] VITALS: BP 146/75
[2020-11-30 19:55] VITALS: BP 114/67
--- NOTE | 2020-12-01 05:49 | NUR ---
PT AMBULATING TO BATHROOM INDEPENDENTLY AND IS TOLERATING FAIR. DENIES PAIN. RESTING COMFORTABLY. NO NEEDS VOICED. CALL LIGHT WITHIN REACH. FREQUENT OBSERVATION.
[2020-12-01 07:40] VITALS: BP 145/83
--- NOTE | 2020-12-01 09:56 | NUR ---
REPORT TO MENDOZA NUNN ON 4W. PT TOLERATED RENÉ WELL. VSS. TRANSPORT BACK TO [facility] PER RN
--- NOTE | 2020-12-01 09:57 | TEE ---
[facility] [place] [address] TRANSESOPHAGEAL ECHOCARDIOGRAM Name: KASIE JOHNSTON Room #: 455-P ADM IN M.R.#: [id number] Admission: 11/26/20 Attend Phys: Lemuel Darling MD Discharge: Date of : 85 Report #: [id number] THIS REPORT FOR: cc: FAM - Family physician unknown FAM - Family physician unknown Richie Taylor MD ~ APPROVED REPORT Study performed: 12/01/2020 08:54:12 EXAM: Transesophageal Echocardiogram Patient Location: In-Patient Room #: 455 Status: routine BSA: 1.87 HR: 74 bpm BP: 145/82 mmHg Rhythm: NSR Other Information Study Quality: Good Indications Bacteremia. Rule out endocarditis. Hx: ESRD, DM, HTN. Procedure After obtaining informed consent, patient underwent transesophageal echo in the [employer]. Type of Sedation : Conscious Sedation Sedation was administered by Dulce Maria Marte RN. Sedation start time: 857 Case end Time: 900 Sedation was achieved intravenously with: Versed (2) Fentanyl (50) Transesophageal probe was inserted and advanced into esophagus without difficulty by Richie Taylor MD FAC. Echo enhancement indication: R/O Septal defect. Echo enhancement agent administered: Agitated Saline The RENÉ was performed without complications. Throughout the procedure, the blood pressure, pulse oximetry, cardiac rhythm, and rate were monitored. The patient tolerated the procedure without adverse effects. Recovery from conscious sedation was uneventful and vital signs were stable. [facility] [address] [place] [address] TRANSESOPHAGEAL ECHOCARDIOGRAM Name: KASIE JOHNSTON Room #: 455-P ADM IN M.R.#: [id number] Admission: 11/26/20 Attend Phys: Lemuel Darling MD Discharge: Date of : 85 Report #: [id number] Left Ventricle The left ventricle is normal size. There is normal LV segmental wall motion. Mild concentric left ventricular hypertrophy. Left ventricular systolic function is normal. LVEF is 60%. Right Ventricle Right ventricle is mildly dilated. The right ventricular systolic function is normal. Atria The left atrium size is normal. No thrombus is visualized in the left atrium or appendage. Right atrium is dilated. No shunting noted by contrast bubble injection. Aortic Valve The aortic valve is normal in structure. Trace aortic regurgitation. There is no aortic valvular stenosis. Mitral Valve The mitral valve is normal in structure. There is no mitral valve regurgitation noted. No evidence of mitral valve stenosis. Tricuspid Valve The tricuspid valve is normal in structure. Moderate tricuspid regurgitation. Great Vessels The aortic root is normal in size. The ascending aorta is normal in size. Pericardium There is no pericardial effusion. <Conclusion> Consent was obtained Timeout performed Esophageal probe was advanced without difficulty after appropriate sedation Left atrial appendage showed no mass or clot detected Normal left atrial size Mild right atrial enlargement Normal mitral valve structure and function Normal aortic valve structure and function Ejection fraction estimated 60% The right ventricle mildly dilated/normal wall motion [facility] [address] [place] [address] TRANSESOPHAGEAL ECHOCARDIOGRAM Name: KSAIE JOHNSTON Room #: 455-P ADM IN M.R.#: [id number] Admission: 11/26/20 Attend Phys: Lemuel Darling MD Discharge: Date of : 85 Report #: [id number] Moderate tricuspid valve insufficiency No pericardial effusion Normal aortic root size No obvious of vegetation or mass detected. Patient tolerated procedure well <ELECTRONICALLY SIGNED> By: Richie Taylor MD, FACC 12/01/20 0956 5 5 Richie Taylor MD, FACC /INF
[2020-12-01] MEDS ORDERED: FIRVANQ50 MG/1 ML PO (12:12)
--- NOTE | 2020-12-01 14:13 | NUR ---
CM FAXED REFERRAL TO: 1:53 PM [facility] FAX 2:02 PM CM FAXED TO [facility] FAX 9:19 AM CM FAXED TO [facility] FAX THEY CALLED DR. MENA FD FORM, TRANSFER FORM, AND CHART COPY COMPLETED SHOULD A FACILITY BE ABLE TO ACCEPT.
[2020-12-01 16:15] VITALS: BP 123/80
--- NOTE | 2020-12-01 18:42 | NUR ---
Report given to EDOUARD Mata [phone].
--- NOTE | 2020-12-01 19:34 | NUR ---
Mayur Fonseca claimed that the patient would leave with IV central lines. the night nurse is aware of it.
--- NOTE | 2020-12-01 19:36 | HC ---
[facility] [place] [address] [place] [address] CONSULTATION Name: KASIE JOHNSTON Room #: 455-P ADM IN M.R.#: [id number] Admission: 11/26/20 Attend Phys: Lemuel Darling MD Discharge: Date of : 85 Report #: [id number] THIS REPORT FOR: cc: FAM - Family physician unknown FAM - Family physician unknown Benjamín Flaherty MD ~ DATE OF SERVICE: 11/28/2020 INFECTIOUS DISEASE CONSULTATION REASON FOR CONSULTATION: Evaluate sepsis and Staph aureus bacteremia. HISTORY OF PRESENT ILLNESS: A 35-year-old with underlying diabetes, hypertension and end-stage renal disease on hemodialysis. She also has a seizure disorder. Hospitalized here 2 weeks ago with seizure. Presents on 11/26/2020 with altered mental status. Blood sugar was over 800. She was hypertensive. She was lethargic, but did improve with correction of her hyperglycemia and blood pressure control. She was found to have positive blood cultures for Staph aureus, sensitivities pending. She also has ongoing diarrhea, which was C. difficile positive. She has been placed on vancomycin IV anteriorly along with ceftriaxone. Initially, had fever and chills that has resolved. Still has recorded fever earlier this morning. Denies any headache, chest pain, nausea, vomiting, abdominal pain. She has small amount of urine output. She dialyzes via a left upper extremity AV graft, which has been swollen and tender last several days. REVIEW OF SYSTEMS: A 14-point review was negative other than what has been described above. ALLERGIES: NONE KNOWN. MEDICATIONS: As noted on her MAR, now on vancomycin IV p.o. and ceftriaxone. PAST MEDICAL HISTORY: Diabetes, hyperlipidemia, major depressive disorder, anxiety, hypertension, end-stage renal disease, anemia, diabetic nephropathy, and peripheral neuropathy. FAMILY HISTORY: Diabetes. SOCIAL HISTORY: Nonsmoker, no significant alcohol intake. Lives with her family. PHYSICAL EXAMINATION: GENERAL: Afebrile and hemodynamically stable. Alert and cooperative. SKIN: With some eschar blister to the left first toe. No surrounding erythema, no tenderness, no fluctuance. No other rashes identified. No palpable [facility] [address] [place] [address] CONSULTATION Name: KASIE JOHNSTON Room #: 455-P [facility] IN M.R.#: [id number] Admission: 11/26/20 Attend Phys: Lemuel Darling MD Discharge: Date of : 85 Report #: [id number] adenopathy. Eyes without scleral icterus. HEENT: Mouth without mucositis. NECK: Supple. LUNGS: Clear to auscultation. HEART: Regular, without appreciable murmur, gallop or rub. ABDOMEN: Soft and nontender. No hepatosplenomegaly or mass appreciated. EXTREMITIES: Left upper extremity has an AV graft with the lateral limb, swollen, tender, a bit fluctuant mild erythema, no purulence able to be expressed. No drainage. Hand was warm with good capillary refill. Strength was normal throughout. Cranial nerves intact. NEUROLOGIC: Mood without anxiety or depression. LABORATORY DATA: Reviewed. MICROBIOLOGY: Reviewed. Chest x-ray reviewed. IMPRESSION: A 35-year-old with end-stage renal disease, presents now with sepsis, decreased mental status, fever, hypertension, found to have Staph aureus bacteremia, source of which I am suspecting her left upper extremity AV dialysis graft. Also, has Clostridium difficile colitis, which is associated with diarrhea, but she is not having much tenderness on examination. Also, has diabetes with poor control. End-stage renal disease with history of noncompliance with medical care. Hypertension. RECOMMENDATION: We will continue IV antibiotic therapy along with enteral therapy. We will discontinue ceftriaxone. Repeat blood cultures. Check echocardiogram. Ultrasound left upper extremity AV graft. <ELECTRONICALLY SIGNED> By: Benjamín Flaherty MD 12/01/20 [id number] Benjamín Flaherty MD /nt
[2020-12-01 20:06] VITALS: BP 114/60
--- NOTE | 2020-12-02 00:50 | NUR ---
[facility] to [facility].
--- NOTE | 2020-12-02 01:01 | NUR ---
[facility]. all belongings verified with patient that she had them with her. her antibiotic naficillin has been hung and is being monitored by the [facility] paramedics. update on her condition and reasons for transfer communicated to paramedics. pt denies pain at time of transfer/discharge
== END 2020-12-02 00:59 | disposition short-term general hospital (02) | DRG 314 ==
LOC: ER 11:03 → EROBS 13:01 → ICU 13:01 → 4W 11-28 04:00
PROVIDERS: Emergency Medicine; Nurse Practitioner Family; ADMIT Hospitalist; ATTEND Hospitalist
PROC: 02HV33Z Insertion of Infusion Device into Superior Vena Cava, Percutaneous Approach (ICD-10-PCS; 2020-11-26)
PROC: B548ZZA Ultrasonography of Superior Vena Cava, Guidance (ICD-10-PCS; 2020-11-26)
PROC: 5A1D70Z Performance of Urinary Filtration, Intermittent, Less than 6 Hours Per Day (ICD-10-PCS; 2020-11-29)
PROC: 5A1D70Z Performance of Urinary Filtration, Intermittent, Less than 6 Hours Per Day (ICD-10-PCS; principal; 2020-12-01)
PROC: B24BZZ4 Ultrasonography of Heart with Aorta, Transesophageal (ICD-10-PCS; principal; 2020-12-01)
DX: T82.510A Breakdown (mechanical) of surgically created arteriovenous fistula, initial encounter (principal); J96.01 Acute respiratory failure with hypoxia; N18.6 End stage renal disease; A41.01 Sepsis due to Methicillin susceptible Staphylococcus aureus; A04.72 Enterocolitis due to Clostridium difficile, not specified as recurrent; I16.1 Hypertensive emergency; I12.0 Hypertensive chronic kidney disease with stage 5 chronic kidney disease or end stage renal disease; L03.114 Cellulitis of left upper limb; E11.65 Type 2 diabetes mellitus with hyperglycemia; E11.22 Type 2 diabetes mellitus with diabetic chronic kidney disease; E78.5 Hyperlipidemia, unspecified; F32.9 Major depressive disorder, single episode, unspecified; F41.9 Anxiety disorder, unspecified; E03.9 Hypothyroidism, unspecified; G40.909 Epilepsy, unspecified, not intractable, without status epilepticus; E87.5 Hyperkalemia; E11.42 Type 2 diabetes mellitus with diabetic polyneuropathy; Y83.8 Other surgical procedures as the cause of abnormal reaction of the patient, or of later complication, without mention of misadventure at the time of the procedure; E11.21 Type 2 diabetes mellitus with diabetic nephropathy; Z20.822 Contact with and (suspected) exposure to COVID-19; Z79.4 Long term (current) use of insulin; Z99.2 Dependence on renal dialysis; Z79.899 Other long term (current) drug therapy; Z91.14 Patient's other noncompliance with medication regimen; Y92.89 Other specified places as the place of occurrence of the external cause
CPT/HCPCS: 10045; 10078; 32100